=== PATIENT | male | born 1995 | race Caucasian/White ===

== ENCOUNTER 2021-06-29 07:21 | Emergency (ER) | payer MEDICAID ==
[~2021-06-29] VITALS: Ht 170.2 cm; Wt 135.0 kg
[2021-06-29] MEDS ORDERED: ondansetron/PF 4mg/2ml inj IV ONE (07:40)
[2021-06-29] MEDS ORDERED: morphine 4 MG/ML inj SYRINge IV ONE (07:40)
[2021-06-29] MEDS ORDERED: ketorolac trometh. 30mg/ml inj. IV ONE (07:40)
[2021-06-29 08:10] LABS: BASOPHILS # (AUTO) 0.1 X10'3 (0-0.2); BASOPHILS % (AUTO) 0.8 % (0-1); EOSINOPHILS % (AUTO) 4.7 % (0-6); MEAN CORPUSCULAR HEMOGLOBIN 30.4 PG (27.0-31.0); MEAN CORPUSCULAR HGB CONC 34.1 g/dL (33.0-36.5); MEAN CORPUSCULAR VOLUME 89.1 FL (78-98); MONOCYTES # (AUTO) 0.6 X10'3 (0-0.9); NEUTROPHILS % (AUTO) 45.2 % (42-75)
[2021-06-29 08:12] LABS: EOSINOPHILS # (AUTO) 0.4 X10'3 (0-0.9); HEMATOCRIT 48.3 % (42.0-52.0); HEMOGLOBIN 16.5 g/dl (14.0-17.9); LYMPHOCYTES % (AUTO) 42.6 % (21-51); MEAN PLATELET VOLUME 10.1 FL (7.4-10.4); MONOCYTES % (AUTO) 6.7 % (2-12); NEUTROPHILS # (AUTO) 4.2 X10'3 (1.8-7.7); PLATELET COUNT 258 X10'3 (140-440); RED BLOOD COUNT 5.42 X10'6 (4.70-6.10); RED CELL DISTRIBUTION WIDTH 13.1 % (11.5-14.5); WHITE BLOOD COUNT 9.4 X10'3 (4.5-11.0)
[2021-06-29 08:17] LABS: CLARITY,URINE CLOUDY (Clear); COLOR,URINE YELLOW (Yellow); GLUCOSE, URINE NEGATIVE (Neg); KETONES,URINE 40 mg/dl (Neg); LEUKOCYTE ESTERASE ,URINE NEGATIVE (Neg); NITRITES, URINE NEGATIVE (Neg); OCCULT BLOOD,URINE MODERATE (Neg); PH,URINE 6.5 (4.8-8.0); PROTEIN,URINE TRACE mg/dl (Neg); UROBILINOGEN,URINE 0.2 E.U/dL (0.2-1.0)
[2021-06-29 08:18] LABS: UA COLLECTION TYPE NON-SPECIFIED
[2021-06-29 08:19] LABS: MUCUS STRANDS MANY /LPF (Neg); SQUAMOUS EPITHELIAL CELL,UR FEW /LPF (FEW)
[2021-06-29 08:20] LABS: BACTERIA,URINE FEW /HPF (Neg); WBC,URINE 0-4 /HPF (0-4)
[2021-06-29] MEDS ORDERED: HYDROcodone/acetaminophen 5mg/325mg tablet PO ONE ×2 (08:50→10:05)
[2021-06-29] MEDS ORDERED: fentaNYL/PF 50MCG/1 ML 2ML syringe IV ONE (08:50)
[2021-06-29 08:57] LABS: LARGE PLATELETS FEW; PLATELET ESTIMATE NORMAL
[2021-06-29 09:01] VITALS: BP 118/77
[2021-06-29 09:57] LABS: ALANINE AMINOTRANSFERASE 29 U/L (12-78); ALBUMIN 5.1 G/DL (3.4-5.0); ALBUMIN/GLOBULIN RATIO 1.7 (1.1-1.5); ANION GAP 16 (8-16); ASPARTATE AMINO TRANSFERASE 21 U/L (10-37); BILIRUBIN,TOTAL 1.6 MG/DL (0.1-1.0); BLOOD UREA NITROGEN 11 MG/DL (7-18); BUN/CREATININE RATIO 8.9 (5.4-32.0); CALCIUM 10.2 MG/DL (8.5-10.1); CHLORIDE 103 MMOL/L (99-107); CREATININE 1.23 MG/DL (0.60-1.10); GLUCOSE 102 MG/DL (70-104); LIPASE 51 U/L (73-393); POTASSIUM 4.3 MMOL/L (3.5-5.1); SODIUM 142 MMOL/L (135-145); TOTAL CARBON DIOXIDE 23.2 MMOL/L (24-32); TOTAL PROTEIN 8.1 G/DL (6.4-8.2); eGFR 73 ML/MIN
[2021-06-29] MEDS ORDERED: ONDA8TAB13 PO (10:05)
[2021-06-29] MEDS ORDERED: HYDR-3965 PO (10:05)
== END 2021-06-29 10:30 | disposition home or self-care (01) ==
LOC: ER 07:22
DX: N20.0 Calculus of kidney (principal); R10.84 Generalized abdominal pain; R11.0 Nausea; Z87.442 Personal history of urinary calculi; Z79.899 Other long term (current) drug therapy
CPT/HCPCS: 36415; 80053; 81001; 83690; 85008; 85025; 96374; 96375; 99284; J1885; J2270; J2405

== ENCOUNTER 2023-05-15 16:49 | Emergency (ER) | payer MEDICAID ==
[~2023-05-15] VITALS: Ht 170.2 cm; Wt 58.2 kg
[~2023-05-15 16:49] MED LIST: ONDA8TAB13 PO
[2023-05-15 17:02] VITALS: BP 116/70; PULSE 90; TEMP 98.1; O2SAT 98
[2023-05-15] MEDS ORDERED: ketorolac trometh inj. 60 MG/2 ML VIAL IM ONE (17:10)
[2023-05-15] MEDS ORDERED: ketorolac trometh. 30mg/ml inj. IM ONE (17:10)
[2023-05-15 17:17] VITALS: RESP 17
== END 2023-05-15 18:16 | disposition home or self-care (01) ==
LOC: ER 16:50
DX: M79.604 Pain in right leg (principal); Z79.899 Other long term (current) drug therapy
CPT/HCPCS: 96372; 99283; J1885

== ENCOUNTER 2023-11-27 17:42 | Emergency (ER) | payer MEDICAID, OTHER ==
[~2023-11-27] VITALS: Ht 170.2 cm; Wt 56.1 kg
[~2023-11-27 17:42] MED LIST changes: +ONDA-245 PO; -ONDA8TAB13 PO
[2023-11-27 18:01] VITALS: BP 119/74; PULSE 71; RESP 17; TEMP 97.9; O2SAT 99
[2023-11-27 18:56] LABS: EOSINOPHILS # (AUTO) 0.3 X10'3 (0-0.9); LYMPHOCYTES # (AUTO) 2.9 X10'3 (1.1-4.8); MEAN PLATELET VOLUME 10.3 FL (7.4-10.4); MONOCYTES # (AUTO) 0.5 X10'3 (0-0.9)
[2023-11-27 18:58] LABS: BASOPHILS % (AUTO) 0.4 % (0-1); EOSINOPHILS % (AUTO) 3.6 % (0-6); HEMATOCRIT 44.6 % (42.0-52.0); HEMOGLOBIN 15.3 g/dl (14.0-17.9); LYMPHOCYTES % (AUTO) 32.7 % (21-51); MEAN CORPUSCULAR HEMOGLOBIN 31.1 PG (27.0-31.0); MEAN CORPUSCULAR HGB CONC 34.2 g/dL (33.0-36.5); MEAN CORPUSCULAR VOLUME 90.9 FL (78-98); MONOCYTES % (AUTO) 5.3 % (2-12); NEUTROPHILS # (AUTO) 5.1 X10'3 (1.8-7.7); PLATELET COUNT 233 X10'3 (140-440); RED BLOOD COUNT 4.91 X10'6 (4.70-6.10); RED CELL DISTRIBUTION WIDTH 13.7 % (11.5-14.5); WHITE BLOOD COUNT 8.8 X10'3 (4.5-11.0)
[2023-11-27 19:14] LABS: ALANINE AMINOTRANSFERASE 24 U/L (12-78); ALBUMIN 4.4 G/DL (3.4-5.0); ALBUMIN/GLOBULIN RATIO 1.4 (1.1-1.5); ALKALINE PHOSPHATASE 80 IU/L (46-116); ANION GAP 10 (8-16); ASPARTATE AMINO TRANSFERASE 16 U/L (10-37); BILIRUBIN,TOTAL 0.8 MG/DL (0.1-1.0); BLOOD UREA NITROGEN 10 MG/DL (7-18); BUN/CREATININE RATIO 10.1 (10.0-20.0); CALCIUM 8.8 MG/DL (8.5-10.1); CHLORIDE 105 MMOL/L (99-107); CREATININE 0.99 MG/DL (0.60-1.10); GLUCOSE 115 MG/DL (70-104); POTASSIUM 3.6 MMOL/L (3.5-5.1); SODIUM 143 MMOL/L (135-145); TOTAL CARBON DIOXIDE 27.8 MMOL/L (24-32); TOTAL PROTEIN 7.6 G/DL (6.4-8.2); eCRCL 90 ML/MIN; eGFR > 90 ML/MIN
[2023-11-27 19:28] LABS: HIV ANTIBODY 1&2 RAPID NON-REACTIVE (Neg)
[2023-11-29 14:59] LABS: HBSAG SCREEN Negative (Negative); HEP A AB, IGM Negative (Negative); HEP B CORE AB, IGM Negative (Negative); HEPATITIS C VIRUS ANTIBODY Non Reactive (Non Reactive)
== END 2023-11-27 19:35 | disposition left against medical advice (07) ==
LOC: ER 17:42
DX: Z77.21 Contact with and (suspected) exposure to potentially hazardous body fluids (principal); Z00.00 Encounter for general adult medical examination without abnormal findings; Z79.899 Other long term (current) drug therapy; Z87.442 Personal history of urinary calculi; Z20.6 Contact with and (suspected) exposure to human immunodeficiency virus [HIV]
CPT/HCPCS: 80053; 80074; 85025; 86703; 99283